=== PATIENT | male | born 1995 | race Two or more races ===

== ENCOUNTER 2019-12-08 05:09 | Inpatient (IN) | payer OTHER ==
[~2019-12-08] VITALS: Ht 170.2 cm; Wt 69.5 kg
--- NOTE | 2019-12-08 05:29 | NUR ---
VSS, A/OX4, NEG N/V, NSR NO ECTOPY. ICE TO SHOULDER, HOB 30*. AWAITING CT/XRAY. AIDET PROVIDED. RPEmily HERE FOR REPORT INTERVIEW PT.
[2019-12-08] MEDS ORDERED: FENTANYL PF 100 MCG/2ML ONE ×3 (06:00→11:38)
[2019-12-08] MEDS ORDERED: ONDANSETRON 2MG/ML, 2ML IVPush ONE ×2 (06:00→08:30)
[2019-12-08] MEDS ORDERED: FENTANYL PF 100 MCG/2ML IVPush ONE (06:00)
[2019-12-08] MEDS ORDERED: ONDANSETRON 2MG/ML, 2ML ONE ×3 (06:00→08:26)
--- NOTE | 2019-12-08 06:07 | NUR ---
BACK FROM CT, NEURO PRECAUTIONS, HOB 30+, PT IS ALERT AND ORIENTED C/O HEADACHE. ERP AT BEDSIDE. FENTENYL 25MCG.
--- NOTE | 2019-12-08 06:14 | NUR ---
0615: PORTABLE XRAY DONE, LAB HERE DRAWING BLOOD, EKG DONE HANDED TO ERP. PT IS ALERT AND ORIENTED BUT OCCASSIONALLY REFUSES TO ANSWER QUESTIONS, WANTS TO KEEP EYES CLOSED SAYS DUE TO HEADACHE. STATES RIGHT SHOULDER DECREASE IN PAIN TO 4/10 HEAVY ODOR OF ETOH FROM BREATH, RED SCLERA PERRL. WILL CONTINUE TO MONITOR. Addendum: 12/08/19 at 0621 by FAUSTINO 0615: PLACED ON 2L O2.
[2019-12-08 06:29] LABS: BASOPHILS # (AUTO) 0.02 x10^3/uL (0-0.1); BASOPHILS % (AUTO) 0 % (0-1); EOSINOPHILS % (AUTO) 0 % (1-7); LYMPHOCYTES # (AUTO) 1.19 x10^3/uL (1-3.4); LYMPHOCYTES % (AUTO) 10 % (22-44); MD NO; MEAN CORPUSCULAR HEMOGLOBIN 31.3 pg (27.5-34.5); MEAN CORPUSCULAR HGB CONC 33.6 g/dL (33.2-36.2); MEAN CORPUSCULAR VOLUME 93.1 fL (81-97); MEAN PLATELET VOLUME 6.8 fL (7.4-10.4); MONOCYTES # (AUTO) 0.58 x10^3/uL (0.2-0.8); MONOCYTES % (AUTO) 5 % (2-9); NEUTROPHILS # (AUTO) 10.64 x10^3/uL (1.8-6.8); NEUTROPHILS % (AUTO) 86 % (42-75); PLATELET COUNT 286 x10^3/uL (130-400); RED BLOOD COUNT 5.05 x10^6/uL (4.38-5.82)
[2019-12-08 06:37] LABS: INTERNATIONAL NORMALIZED RATIO 0.99 (0.93-1.1); PROTHROMBIN TIME 10.2 Seconds (9.6-11.5)
[2019-12-08 06:38] LABS: ALANINE AMINOTRANSFERASE 48 U/L (12-78); ALBUMIN 4.2 g/dL (3.4-5.0); ANION GAP 13 mmol/L (5-15); CHLORIDE 109 mmol/L (98-107); CREATININE 0.89 mg/dL (0.7-1.3)
[2019-12-08 06:40] LABS: ALKALINE PHOSPHATASE 81 U/L (45-117); BILIRUBIN,TOTAL 0.4 mg/dL (0.2-1.0); TOTAL PROTEIN 8.5 g/dL (6.4-8.2)
--- NOTE | 2019-12-08 06:55 | NUR ---
SB[facility] HAND-OFF REPORT RECEIVED FROM JUAN ALBERTO RAJAN. ASSUMING CARE OF PATIENT.
[2019-12-08] MEDS ORDERED: OXYcodone IR 5MG TABLET PO PRN (07:00)
[2019-12-08] MEDS ORDERED: LORazepam 2 MG/ML, 1ML IVPush PRN (07:00)
[2019-12-08] MEDS ORDERED: ONDANSETRON 2MG/ML, 2ML IVPush PRN ×2 (07:00→10:00)
[2019-12-08] MEDS ORDERED: POLYETHYLENE GLYCOL 17 GM PACKET PO PRN (07:00)
[2019-12-08] MEDS ORDERED: LABETALOL 5MG/ML, 20ML IVPush PRN (07:00)
[2019-12-08] MEDS ORDERED: ENALAPRILAT 1.25 MG/ML, 2ML IVPush PRN (07:00)
[2019-12-08] MEDS ORDERED: BISACODYL 10 MG SUPP PR PRN (07:00)
--- NOTE | 2019-12-08 07:11 | NUR ---
NEUROSURGEON, DR. STACY, AT BEDSIDE.
[2019-12-08] MEDS ORDERED: OXYcodone IR 5MG TABLET ONE (07:30)
--- NOTE | 2019-12-08 07:44 | NUR ---
PHARMACY REQUEST SLIP SENT TO PHARMACY FOR KEPPRA IV. PT MEDICATED FOR NAUSEA AND PAIN.
[2019-12-08] MEDS: LEVETIRACETAM 500 MG in SODIUM CHLORIDE 0.9% 100 ML IV SCH ×2 (08:07→20:07)
[2019-12-08] MEDS: SODIUM CHLORIDE 0.9% 1,000 ML IV SCH ×2 (08:15→20:12)
--- NOTE | 2019-12-08 08:37 | NUR ---
ISHMAEL, SISTER, PHONE , IS THE LINES TENDER/VISITOR FOR THIS PATIENT THIS HOSPITALIZATION.
[2019-12-08] MEDS: FENTANYL PF 100 MCG/2ML IVPush PRN ×2 (08:39→11:39)
--- NOTE | 2019-12-08 08:45 | NUR ---
PT MEDICATED FOR PAIN AND NAUSEA. PT TO CCU AT THIS TIME.
--- NOTE | 2019-12-08 08:53 | NUR ---
pt to ccu at this time
[2019-12-08] MEDS ORDERED: SENNA/DOCUSATE TABLET PO SCH (09:00)
[2019-12-08] MEDS ORDERED: FENTANYL PF 250 MCG/5ML ONE (09:29)
[2019-12-08] MEDS ORDERED: BACITRACIN 50,000 UNIT ONE (09:31)
[2019-12-08] MEDS ORDERED: BUPIVACAINE/EPI 0.5% 1:200K ONE (09:31)
[2019-12-08] MEDS ORDERED: MANNITOL PMX 20% 0 ML ONE (09:34)
[2019-12-08] MEDS ORDERED: FUROSEMIDE 20 MG/2 ML ONE (09:34)
[2019-12-08] MEDS ORDERED: PROPOFOL 50 ML ONE (09:35)
[2019-12-08] MEDS ORDERED: PHENYLEPHRINE 10 MG/ML ONE (09:52)
[2019-12-08] MEDS ORDERED: FENTANYL PF 100 MCG/2ML IV PRN (10:00)
[2019-12-08] MEDS ORDERED: LABETALOL 5MG/ML, 20ML IV PRN ×3 (10:00→15:46)
[2019-12-08] MEDS ORDERED: hydrALAzine 20 MG/ML, 1ML IV PRN ×3 (10:00→15:47)
[2019-12-08] MEDS ORDERED: HYDROmorphone 1 MG/ML, 1ML INJ IVPush PRN (10:00)
[2019-12-08] MEDS ORDERED: ACETAMINOPHEN 325 MG TABLET PO PRN (10:00)
[2019-12-08] MEDS ORDERED: morphine SULFATE 10 MG/ML, 1ML IVPush PRN (10:00)
[2019-12-08] MEDS ORDERED: MEPERIDINE/PF 25MG/0.5ML IVPush PRN (10:00)
[2019-12-08] MEDS ORDERED: OXYcodone 5 MG/5 ML ORAL.SOL UDC PO PRN (10:00)
[2019-12-08] MEDS ORDERED: BUPIVACAINE/EPI 0.5% 1:200K INFIL ONE (10:43)
[2019-12-08] MEDS ORDERED: CEFAZOLIN 1,000 MG ONE (10:51)
[2019-12-08] MEDS ORDERED: GLYCOPYRROLATE 0.2MG/1ML, 5ML ONE (10:51)
[2019-12-08] MEDS ORDERED: PROPOFOL 10 MG/ML, 20ML ONE (10:51)
[2019-12-08] MEDS ORDERED: ROCURONIUM 10MG/ML,5ML ONE (10:51)
[2019-12-08] MEDS ORDERED: NEOSTIGMINE 1 MG/ML, 10ML ONE (10:51)
[2019-12-08] MEDS ORDERED: CEFAZOLIN PMX 1GM/50ML 50 ML IVPB SCH (12:30)
[2019-12-08] MEDS: NS + 20MEQ KCL 1,000 ML IV SCH (12:55)
[2019-12-08 14:59] VITALS: BP 110/43
[2019-12-08] MEDS ORDERED: HYDROcodone/APAP 5/325 TABLET PO PRN (16:00)
[2019-12-08] MEDS: CEFAZOLIN PMX 1GM/50ML 50 ML IVPB SCH (18:54)
[2019-12-08] MEDS: ONDANSETRON 2MG/ML, 2ML IV PRN (19:49)
[2019-12-08] MEDS ORDERED: PROCHLORPERAZINE 5 MG/ML, 2ML IVPush PRN (22:30)
[2019-12-09] MEDS: NS + 20MEQ KCL 1,000 ML IV SCH (01:51)
[2019-12-09] MEDS: CEFAZOLIN PMX 1GM/50ML 50 ML IVPB SCH ×2 (02:59→11:35)
[2019-12-09 03:51] VITALS: BP 107/60
[2019-12-09 04:41] LABS: MEAN CORPUSCULAR HGB CONC 33.1 g/dL (33.2-36.2); MEAN CORPUSCULAR VOLUME 93.7 fL (81-97); MEAN PLATELET VOLUME 6.9 fL (7.4-10.4); PLATELET COUNT 271 x10^3/uL (130-400); RED BLOOD COUNT 4.33 x10^6/uL (4.38-5.82); RED CELL DISTRIBUTION WIDTH 13.4 % (9.4-14.8)
[2019-12-09 04:46] LABS: ANION GAP 10 mmol/L (5-15); CALCIUM 8.4 mg/dL (8.5-10.1); CHLORIDE 107 mmol/L (98-107); CREATININE 0.79 mg/dL (0.7-1.3)
[2019-12-09 05:03] LABS: BASOPHILS # (AUTO) 0.01 x10^3/uL (0-0.1); BASOPHILS % (AUTO) 0 % (0-1); EOSINOPHILS % (AUTO) 0 % (1-7); LYMPHOCYTES # (AUTO) 0.79 x10^3/uL (1-3.4); LYMPHOCYTES % (AUTO) 4 % (22-44); MD SCAN; MONOCYTES # (AUTO) 2.68 x10^3/uL (0.2-0.8); MONOCYTES % (AUTO) 13 % (2-9); NEUTROPHILS # (AUTO) 17.28 x10^3/uL (1.8-6.8); NEUTROPHILS % (AUTO) 83 % (42-75)
[2019-12-09] MEDS: ONDANSETRON 2MG/ML, 2ML IV PRN (06:27)
[2019-12-09] MEDS: SENNA/DOCUSATE TABLET PO SCH (08:54)
[2019-12-09 09:00] VITALS: BP 119/66
[2019-12-09] MEDS: LEVETIRACETAM 500 MG in SODIUM CHLORIDE 0.9% 100 ML IV SCH ×2 (09:01→19:26)
[2019-12-09] MEDS: OXYcodone/APAP 5/325MG TABLET PO PRN ×2 (10:39→18:26)
[2019-12-09 10:59] VITALS: BP 97/61
[2019-12-09 14:30] VITALS: BP 122/73
[2019-12-09 18:20] VITALS: BP 116/72
[2019-12-10] VITALS (7 sets, daily range): BP systolic 108–123; BP diastolic 65–75
[2019-12-10] MEDS: OXYcodone/APAP 5/325MG TABLET PO PRN (01:33)
[2019-12-10] MEDS: ONDANSETRON 2MG/ML, 2ML IV PRN ×3 (02:06→17:57)
[2019-12-10] MEDS: SENNA/DOCUSATE TABLET PO SCH (08:02)
[2019-12-10] MEDS: LEVETIRACETAM 500 MG in SODIUM CHLORIDE 0.9% 100 ML IV SCH ×2 (08:11→19:51)
[2019-12-10] MEDS: ACETAMINOPHEN 325 MG TABLET PO PRN ×4 (08:11→22:57)
[2019-12-10] MEDS ORDERED: MELATONIN 5 MG TABLET PO SCH (23:30)
[2019-12-11 00:16] VITALS: BP 110/62
[2019-12-11] MEDS: OXYcodone/APAP 5/325MG TABLET PO PRN ×2 (02:21→08:50)
[2019-12-11 05:51] VITALS: BP 112/71
[2019-12-11] MEDS: LEVETIRACETAM 500 MG in SODIUM CHLORIDE 0.9% 100 ML IV SCH (08:40)
[2019-12-11] MEDS: SENNA/DOCUSATE TABLET PO SCH (08:40)
[2019-12-11 12:41] VITALS: BP 112/70
[2019-12-11] MEDS ORDERED: LEVE500T53 PO (15:30)
[2019-12-11] MEDS ORDERED: OXYC5CAP2 PO (15:35)
== END 2019-12-11 16:44 | disposition home or self-care (01) | DRG 27 ==
LOC: ED 06:21 → EDIP 06:46 → CCU 08:59 → 4WST 12-09 10:32 → DCLOUNGE 12-11 16:05
PROVIDERS: ADMIT Internal Medicine; ATTEND Internal Medicine
PROC: 00930ZZ Drainage of Intracranial Epidural Space, Open Approach (ICD-10-PCS; principal; 2019-12-08 09:30)
DX: S06.5X0A Traumatic subdural hemorrhage without loss of consciousness, initial encounter (principal); D72.828 Other elevated white blood cell count; S02.19XA Other fracture of base of skull, initial encounter for closed fracture; S02.40EA Zygomatic fracture, right side, initial encounter for closed fracture; F17.200 Nicotine dependence, unspecified, uncomplicated; S42.031A Displaced fracture of lateral end of right clavicle, initial encounter for closed fracture; X58.XXXA Exposure to other specified factors, initial encounter; Y93.89 Activity, other specified; Y92.89 Other specified places as the place of occurrence of the external cause; Y99.8 Other external cause status; Z20.828 Contact with and (suspected) exposure to other viral communicable diseases
CPT/HCPCS: 36415; 70450; 72125; 80048; 80053; 85025; 85610; 85730; 87081; 87635; 93005; C1713; G0378; J0690; J1953; J2270; J2405; J2704; J2710; J3010; J3480; J0780; J1940; J2370; J7030